=== PATIENT | female | born 1935 | race Caucasian/White ===

== ENCOUNTER 2016-08-19 06:00 | Day surgery (SDC) | payer MEDICARE, BC ==
[~2016-08-19 06:00] MED LIST: ACETAMINOPHEN 325 MG ONE
[2016-08-19] MEDS: PHENYLEPHRINE HCL 10% OPHTHAL SOL ONE ×2 (06:20→06:33)
[2016-08-19] MEDS: PROPARACAINE HCL 0.5% OPHTHALMIC SOL ONE ×3 (06:20→07:33)
[2016-08-19] MEDS: CYCLOPENTOLATE 1% SOL ONE ×2 (06:21→06:34)
[2016-08-19] MEDS ORDERED: POVIDONE IODINE 5% SOL ONE (07:06)
[2016-08-19] MEDS ORDERED: BSS W/ 0.25MG P.F. EPI 1 BOTTLE ONE (07:06)
[2016-08-19] MEDS ORDERED: LIDOCAINE HCL 1% MPF SOL ONE (07:06)
[2016-08-19] MEDS ORDERED: FENTANYL 100MCG/2ML SOL ONE (07:06)
[2016-08-19] MEDS ORDERED: MIDAZOLAM 2 MG/2 ML SOL ONE (07:06)
[2016-08-19] MEDS ORDERED: ACETAZOLAMIDE 500 MG CER ONE (07:58)
[2016-08-19 08:21] VITALS: BP 129/45; PULSE 68; RESP 16; TEMP 97.6; O2SAT 94
== END 2016-08-19 08:41 | disposition home or self-care (01) | DRG 125 ==
LOC: SURG 06:00
PROVIDERS: ATTEND Ophthalmology
DX: H25.9 Unspecified age-related cataract (principal)
CPT/HCPCS: J2250; J3010; J2001

== ENCOUNTER 2017-12-07 17:14 | Inpatient (IN) | payer MEDICARE, BC ==
[2017-12-07] MEDS ORDERED: SODIUM CHLORIDE/KCL 20MEQ 1,000 ML IV ONE (17:44)
[2017-12-07] MEDS ORDERED: ALBUTEROL NEB SOL 2.5MG/3ML 1 VIAL SOL NEB PRN (17:49)
[2017-12-07] MEDS ORDERED: AZITHROMYCIN 250 MG TAB PO ONE (17:57)
[2017-12-07] MEDS ORDERED: CEFTRIAXONE 1 GM (PREMIX) 1 GM/50 ML SOL IV SCH (18:00)
[2017-12-07] MEDS ORDERED: PATIENT EDUCATION 1 MISC PRN (18:10)
[2017-12-07] MEDS ORDERED: CEFTRIAXONE 1 GM PDS 1 GM in SODIUM CHLORIDE 0.9% 50 ML 50 ML IV ONE (18:13)
[2017-12-07] MEDS ORDERED: CEFTRIAXONE 1 GM PDS ONE (18:17)
[2017-12-07] MEDS: ALBUTEROL/IPRATROPIUM 1 VIAL SOL INH SCH (18:33)
[2017-12-07] MEDS ORDERED: ENOXAPARIN 80 MG SOL SC SCH ×2 (19:45→19:50)
[2017-12-07] MEDS: LOSARTAN POTASSIUM 50 MG TAB PO SCH (19:56)
[2017-12-07] MEDS: ATORVASTATIN 10 MG TAB PO SCH (19:57)
[2017-12-07] MEDS: METOPROLOL SUCCINATE 50 MG ER TAB PO SCH (19:57)
[2017-12-07] MEDS: SODIUM CHLORIDE 0.9% FLUSH 10 ML SOL IV SCH (23:13)
[2017-12-08] MEDS: SODIUM CHLORIDE/KCL 20MEQ 1,000 ML IV SCH ×3 (00:12→17:18)
[2017-12-08] MEDS: ALBUTEROL/IPRATROPIUM 1 VIAL SOL INH SCH ×4 (00:13→18:20)
[2017-12-08] MEDS: SODIUM CHLORIDE 0.9% FLUSH 10 ML SOL IV SCH ×3 (05:57→23:44)
[2017-12-08 07:00] LABS: BASOPHILS % (AUTO) 1 % (0-3); EOSINOPHILS % (AUTO) 3 % (0-9); HEMATOCRIT 38 % (35-47); HEMOGLOBIN 12.6 gm/dl (12.0-15.5); LYMPHOCYTES % (AUTO) 12.7 % (10-50); MEAN CORPUSCULAR HEMOGLOBIN 31.7 pg (27.0-32.0); MEAN CORPUSCULAR HGB CONC 33.1 gm/dl (32.0-36.0); MEAN CORPUSCULAR VOLUME 96 fL (81-99); MONOCYTES % (AUTO) 10.2 % (0-12); NEUTROPHILS % (AUTO) 73.6 % (37-80)
[2017-12-08 07:02] LABS: CALCIUM 7.7 mg/dl (8.5-10.1); CREATININE 1.01 mg/dl (0.60-1.00); POTASSIUM 4.1 mMol/L (3.5-5.1)
[2017-12-08 07:09] LABS: CARBON DIOXIDE 33.2 mEq/L (21-32)
[2017-12-08] MEDS ORDERED: CHLORTHALIDONE PO SCH (09:00)
[2017-12-08] MEDS: AZITHROMYCIN 250 MG TAB PO SCH (09:01)
[2017-12-08] MEDS: AMLODIPINE 5 MG TAB PO SCH (09:01)
[2017-12-08] MEDS: MULTIVITAMIN2 1 EA TAB PO SCH (09:01)
[2017-12-08] MEDS: METOPROLOL SUCCINATE 50 MG ER TAB PO SCH ×2 (09:02→18:18)
[2017-12-08] MEDS: ATORVASTATIN 10 MG TAB PO SCH (18:17)
[2017-12-08] MEDS: LOSARTAN POTASSIUM 50 MG TAB PO SCH (18:18)
[2017-12-08] MEDS ORDERED: SODIUM CHLORIDE 0.9% 50 ML 50 ML IV ONE (18:57)
[2017-12-08] MEDS ORDERED: CEFTRIAXONE 1 GM PDS ONE (18:57)
[2017-12-08] MEDS ORDERED: CEFTRIAXONE 1 GM PDS 1 GM in SODIUM CHLORIDE 0.9% 50 ML 50 ML IV SCH (19:00)
[2017-12-09] MEDS: ALBUTEROL/IPRATROPIUM 1 VIAL SOL INH SCH ×4 (00:07→18:05)
[2017-12-09] MEDS: SODIUM CHLORIDE/KCL 20MEQ 1,000 ML IV SCH (01:41)
[2017-12-09] MEDS: SODIUM CHLORIDE 0.9% FLUSH 10 ML SOL IV SCH ×4 (06:05→22:06)
[2017-12-09 07:16] LABS: HEMATOCRIT 41 % (35-47); HEMOGLOBIN 13.4 gm/dl (12.0-15.5); MEAN CORPUSCULAR HEMOGLOBIN 31.5 pg (27.0-32.0); MEAN CORPUSCULAR HGB CONC 32.8 gm/dl (32.0-36.0); MEAN CORPUSCULAR VOLUME 96 fL (81-99)
[2017-12-09 07:17] LABS: CARBON DIOXIDE 29.4 mEq/L (21-32); CREATININE 0.85 mg/dl (0.60-1.00); POTASSIUM 4.3 mMol/L (3.5-5.1)
[2017-12-09 07:39] LABS: BAND NEUTROPHILS % (MANUAL) 5 %; BASOPHILS % (MANUAL) 1 % (0-3); EOSINOPHILS % (MANUAL) 2 % (0-9); LYMPHOCYTES % (MANUAL) 17 % (10-50); MONOCYTES % (MANUAL) 5 % (0-12); NEUTROPHILS % (MANUAL) 70 % (37-80)
[2017-12-09 07:40] LABS: NORMAL RBCS PRESENT
[2017-12-09] MEDS ORDERED: CEFDINIR 300 MG CAP PO SCH ×3 (09:00→16:00)
[2017-12-09] MEDS: ASPIRIN 81 MG CHEWABLE CTB PO SCH (09:17)
[2017-12-09] MEDS: AMLODIPINE 5 MG TAB PO SCH (09:17)
[2017-12-09] MEDS: MULTIVITAMIN2 1 EA TAB PO SCH (09:18)
[2017-12-09] MEDS: CALCIUM CARBONATE 500 MG TAB PO SCH (09:18)
[2017-12-09] MEDS: METOPROLOL SUCCINATE 50 MG ER TAB PO SCH ×2 (09:18→18:03)
[2017-12-09] MEDS: AZITHROMYCIN 250 MG TAB PO SCH (09:19)
[2017-12-09] MEDS: CHLORTHALIDONE 25 MG TAB PO SCH (09:25)
[2017-12-09] MEDS: ACETAMINOPHEN 500 MG 500 MG TAB PO PRN ×2 (14:00→20:39)
[2017-12-09] MEDS: LOSARTAN POTASSIUM 50 MG TAB PO SCH (18:02)
[2017-12-09] MEDS: ATORVASTATIN 10 MG TAB PO SCH (18:02)
[2017-12-09 18:09] VITALS: RESP 16
[2017-12-10] MEDS: ALBUTEROL/IPRATROPIUM 1 VIAL SOL INH SCH ×2 (00:26→05:58)
[2017-12-10] MEDS: SODIUM CHLORIDE 0.9% FLUSH 10 ML SOL IV SCH (05:56)
[2017-12-10 08:06] VITALS: BP 167/72; PULSE 65; TEMP 98.1; O2SAT 87
[2017-12-10] MEDS: CALCIUM CARBONATE 500 MG TAB PO SCH (08:44)
[2017-12-10] MEDS: AMLODIPINE 5 MG TAB PO SCH (08:44)
[2017-12-10] MEDS: ASPIRIN 81 MG CHEWABLE CTB PO SCH (08:44)
[2017-12-10] MEDS: MULTIVITAMIN2 1 EA TAB PO SCH (08:44)
[2017-12-10] MEDS: METOPROLOL SUCCINATE 50 MG ER TAB PO SCH (08:44)
[2017-12-10] MEDS: AZITHROMYCIN 250 MG TAB PO SCH (08:45)
[2017-12-10] MEDS: CHLORTHALIDONE 25 MG TAB PO SCH (08:46)
== END 2017-12-10 13:00 | disposition home or self-care (01) | DRG 194 ==
LOC: ACUTE CARE 17:28
PROVIDERS: ADMIT Family Medicine; ATTEND Family Medicine
DX: J18.1 Lobar pneumonia, unspecified organism (principal); R04.2 Hemoptysis
CPT/HCPCS: 36415; 71275; 80048; 85007; 85025; 85027; 94150; 94640; 94762; 99070; J0696; J1650; J7613; Q9967; A9270-GY